=== PATIENT | male | born 1990 | race African-American/Black ===

== ENCOUNTER 2018-06-20 21:37 | Emergency (ER) | payer SELFPAY ==
[~2018-06-20] VITALS: Ht 167.6 cm; Wt 63.2 kg
[2018-06-20 21:43] VITALS: BP 160/73; TEMP 97.9
[2018-06-20 22:03] LABS: COLLECTION METHOD CLEAN CATCH
[2018-06-20 22:11] LABS: PH 6 (5-8); SQUAMOUS EPITHELIAL None Seen /hpf; URINE APPEARANCE Clear; URINE BACTERIA None Seen /hpf; URINE BILIRUBIN Negative (NEGATIVE); URINE BLOOD Negative (NEGATIVE); URINE COLOR Yellow; URINE GLUCOSE Negative (NEGATIVE); URINE KETONE Negative (NEGATIVE); URINE LEUKOCYTE ESTERASE 1+ (NEGATIVE); URINE NITRATE Negative (NEGATIVE); URINE PROTEIN(semi-quant) Negative (NEGATIVE); URINE RBC 0-2 /hpf
[2018-06-20] MEDS ORDERED: CIPRO 500MG TA500 MG PO (22:29)
[2018-06-20 23:01] VITALS: PULSE 74
== END 2018-06-20 23:01 | disposition home or self-care (01) ==
LOC: COL.ER 21:37
PROVIDERS: Emergency Medicine
DX: N34.2 Other urethritis (principal)
CPT/HCPCS: J0696